=== PATIENT | female | born 1960 | race Caucasian/White ===

== ENCOUNTER 2020-01-08 09:40 | Inpatient (IN) ==
[2020-01-08 11:03] LABS: Eosinophils % 0.2 %; Hemoglobin 11.8 g/dL (11.5-15.4); Immature Granulocytes % 0.8 % (0-4); Lymphocytes % 19.4 %; Mean Corpuscular HGB Conc 32.8 g/dL (31.6-35.5); Mean Corpuscular Hemoglobin 31.1 pg (28.0-33.3); Mean Corpuscular Volume 94.7 fL (83.0-100.0); Mean Platelet Volume 9.2 fL (9.4-12.4); Monocytes # 0.3 K/mcL (0.0-1.3); Monocytes % 6.1 %; Neutrophils # 3.9 K/mcL (1.6-8.9); Platelet Count 216 K/mcL (140-400); Segmented Neutrophils % 73.5 %; White Blood Count 5.3 K/mcL (4.3-11.1)
[2020-01-08 11:05] LABS: INR 1.1; Prothrombin Time 12.3 Seconds (9.4-12.1)
[2020-01-08 11:06] LABS: Activated Partial Thrombo Time 29.4 Seconds (26.0-36.0)
[2020-01-08 11:16] LABS: Alanine Aminotransferase 23 Units/L (7-52); Albumin 3.4 g/dL (3.5-5.7); Albumin/Globulin Ratio 1.3 (1.1-2.2); Alkaline Phosphatase 83 Units/L (34-104); Aspartate Amino Transferase 35 Units/L (13-39); BUN/Creatinine Ratio 18 (6-26); Bilirubin,Direct 0.1 mg/dL (0.0-0.2); Bilirubin,Indirect 0.3 mg/dL (0.0-1.0); Bilirubin,Total 0.4 mg/dL (0.3-1.0); Blood Urea Nitrogen 12 mg/dL (6-20); C-Reactive Protein 107 mg/L (Less than 10); Calcium 8.1 mg/dL (8.6-10.3); Carbon Dioxide 26 mEq/L (23-29); Chloride 105 mEq/L (98-107); Globulin 2.6 g/dL (2.4-3.5); Glucose 105 mg/dL (70-105); Lactate Dehydrogenase 292 Units/L (140-271); Magnesium 1.9 mg/dL (1.6-2.6); Osmolality,Calculated 288 (280-300); Phosphorous 2.4 mg/dL (2.7-4.5); Potassium 3.3 mEq/L (3.5-5.1); Sodium 139 mEq/L (136-145); Troponin I < 0.03 ng/mL (< 0.04); eGFR For African Americans > 60 (> 60); eGFR For Non-African Americans > 60 (> 60)
[2020-01-08 11:33] LABS: Ferritin 218 ng/mL (10-120)
[2020-01-08] MEDS ORDERED: Azithromycin 500 MG in 0.9 % Sodium Chloride 250 ML IVPB ONE (11:37)
[2020-01-08] MEDS ORDERED: cefTRIAXone 1,000 MG in 0.9 % Sodium Chloride Mini Bag 100 ML IVPB ONE (11:37)
[2020-01-08] MEDS ORDERED: Ondansetron 4 MG/2 ML VIAL IVP PRN (13:52)
[2020-01-08] MEDS ORDERED: Naloxone 0.4 MG/ML INJ IVP PRN (13:52)
[2020-01-08] MEDS ORDERED: Furosemide 20 MG/2 ML VIAL IVP SCH (14:00)
[2020-01-08 15:00] LABS: ABG Base Excess 2 mEq/L (-2 to 3); ABG HCO3 27 mEq/L (21-27); ABG Oxygen Saturation 90 % (95-98); ABG PCO2 42 mmHg (35-45); ABG PH 7.42 pH Units (7.32-7.45); ABG PO2 57 mmHg (85-104); ABG TCO2 28 mEq/L (20-26)
[2020-01-08] MEDS ORDERED: hydrOXYzine pamoate 25 MG CAPSULE PO PRN (15:18)
[2020-01-08] MEDS: Famotidine 20 MG/2 ML VIAL IVP SCH (17:45)
[2020-01-08] MEDS ORDERED: Calcium Gluconate 1gm/50mL 1 GM/50 ML BAG IVPB PRN (19:10)
[2020-01-08] MEDS ORDERED: Potassium Phosphate 44 MEQ in 0.9 % Sodium Chloride 250 ML IVPB PRN (19:10)
[2020-01-08] MEDS: Furosemide 20 MG/2 ML VIAL IVP SCH (20:07)
[2020-01-08] MEDS: Gabapentin 300 MG CAPSULE PO SCH (20:08)
[2020-01-08] MEDS: Potassium Chloride Elixir 20 MEQ/15 ML UDC PO SCH (20:32)
[2020-01-09 03:58] LABS: Basophils % 0.4 %; Hematocrit 36.1 % (35.3-44.9); Immature Granulocytes % 0.6 % (0-4); Lymphocytes # 0.9 K/mcL (0.6-4.6); Lymphocytes % 17.7 %; Mean Corpuscular HGB Conc 33.2 g/dL (31.6-35.5); Mean Corpuscular Hemoglobin 31.3 pg (28.0-33.3); Mean Corpuscular Volume 94.3 fL (83.0-100.0); Mean Platelet Volume 9.2 fL (9.4-12.4); Monocytes # 0.3 K/mcL (0.0-1.3); Monocytes % 6.4 %; Platelet Count 229 K/mcL (140-400); Red Blood Count 3.83 M/mcL (3.82-4.97); Segmented Neutrophils % 74.9 %; White Blood Count 5.3 K/mcL (4.3-11.1)
[2020-01-09 04:02] LABS: INR 1.2; Prothrombin Time 13.1 Seconds (9.4-12.1)
[2020-01-09 04:20] LABS: Alanine Aminotransferase 23 Units/L (7-52); Albumin 3.5 g/dL (3.5-5.7); Albumin/Globulin Ratio 1.2 (1.1-2.2); Alkaline Phosphatase 85 Units/L (34-104); Aspartate Amino Transferase 36 Units/L (13-39); BUN/Creatinine Ratio 18 (6-26); Bilirubin,Total 0.4 mg/dL (0.3-1.0); Blood Urea Nitrogen 10 mg/dL (6-20); Calcium 8.1 mg/dL (8.6-10.3); Carbon Dioxide 28 mEq/L (23-29); Chloride 100 mEq/L (98-107); Globulin 2.9 g/dL (2.4-3.5); Glucose 103 mg/dL (70-105); Magnesium 1.7 mg/dL (1.6-2.6); Osmolality,Calculated 287 (280-300); Phosphorous 3.6 mg/dL (2.7-4.5); Potassium 3.8 mEq/L (3.5-5.1); Sodium 139 mEq/L (136-145); Total Protein 6.4 g/dL (6.4-8.9); eGFR For African Americans > 60 (> 60); eGFR For Non-African Americans > 60 (> 60)
[2020-01-09 04:22] LABS: Alanine Aminotransferase 23 Units/L (7-52); Albumin 3.5 g/dL (3.5-5.7); Albumin/Globulin Ratio 1.3 (1.1-2.2); Alkaline Phosphatase 84 Units/L (34-104); Aspartate Amino Transferase 35 Units/L (13-39); Bilirubin,Direct 0.1 mg/dL (0.0-0.2); Bilirubin,Indirect 0.3 mg/dL (0.0-1.0); Bilirubin,Total 0.4 mg/dL (0.3-1.0); C-Reactive Protein 139 mg/L (Less than 10); Creatine Kinase 42 Units/L (30-223); Globulin 2.7 g/dL (2.4-3.5); Lactate Dehydrogenase 321 Units/L (140-271); Total Protein 6.2 g/dL (6.4-8.9); Troponin I < 0.03 ng/mL (< 0.04)
[2020-01-09 04:36] LABS: Ferritin 243 ng/mL (10-120)
[2020-01-09] MEDS: *HR* Enoxaparin 40 MG/0.4 ML SYRINGE SQ SCH (05:06)
[2020-01-09] MEDS: Famotidine 20 MG/2 ML VIAL IVP SCH ×2 (05:06→16:53)
[2020-01-09 05:23] LABS: ABG Base Excess 3 mEq/L (-2 to 3); ABG HCO3 27 mEq/L (21-27); ABG Oxygen Saturation 89 % (95-98); ABG PCO2 39 mmHg (35-45); ABG PH 7.45 pH Units (7.32-7.45); ABG PO2 54 mmHg (85-104); ABG TCO2 28 mEq/L (20-26); Blood Gas Modality CPAP/PS
[2020-01-09] MEDS: Acetaminophen 325 MG TABLET PO PRN ×2 (05:32→13:04)
[2020-01-09] MEDS: lamoTRIgine 100 MG TABLET PO SCH (07:46)
[2020-01-09] MEDS: Furosemide 20 MG/2 ML VIAL IVP SCH ×3 (07:47→22:01)
[2020-01-09] MEDS: Potassium Chloride Elixir 20 MEQ/15 ML UDC PO SCH ×3 (07:47→22:04)
[2020-01-09] MEDS: cefTRIAXone 1,000 MG in Water for inj. (sterile) 10 ML IVP SCH (07:49)
[2020-01-09 13:40] LABS: Alanine Aminotransferase 22 Units/L (7-52); Albumin 3.8 g/dL (3.5-5.7); Albumin/Globulin Ratio 1.3 (1.1-2.2); Alkaline Phosphatase 93 Units/L (34-104); Aspartate Amino Transferase 39 Units/L (13-39); BUN/Creatinine Ratio 21 (6-26); Bilirubin,Total 0.4 mg/dL (0.3-1.0); Blood Urea Nitrogen 12 mg/dL (6-20); Calcium 8.4 mg/dL (8.6-10.3); Carbon Dioxide 32 mEq/L (23-29); Chloride 101 mEq/L (98-107); Glucose 107 mg/dL (70-105); Magnesium 2.4 mg/dL (1.6-2.6); Osmolality,Calculated 292 (280-300); Potassium 3.9 mEq/L (3.5-5.1); Sodium 141 mEq/L (136-145); Total Protein 6.8 g/dL (6.4-8.9); eGFR For African Americans > 60 (> 60); eGFR For Non-African Americans > 60 (> 60)
[2020-01-09] MEDS ORDERED: Potassium Chloride Elixir 20 MEQ/15 ML UDC PO PRN (13:48)
[2020-01-09] MEDS: Azithromycin 500 MG in 0.9 % Sodium Chloride 250 ML IVPB SCH (14:16)
[2020-01-09 19:28] LABS: Alanine Aminotransferase 23 Units/L (7-52); Albumin 3.6 g/dL (3.5-5.7); Albumin/Globulin Ratio 1.1 (1.1-2.2); Alkaline Phosphatase 88 Units/L (34-104); Aspartate Amino Transferase 40 Units/L (13-39); BUN/Creatinine Ratio 25 (6-26); Bilirubin,Total 0.4 mg/dL (0.3-1.0); Blood Urea Nitrogen 13 mg/dL (6-20); Calcium 8.3 mg/dL (8.6-10.3); Carbon Dioxide 30 mEq/L (23-29); Chloride 101 mEq/L (98-107); Globulin 3.4 g/dL (2.4-3.5); Glucose 93 mg/dL (70-105); Magnesium 2.3 mg/dL (1.6-2.6); Osmolality,Calculated 292 (280-300); Potassium 3.8 mEq/L (3.5-5.1); Sodium 141 mEq/L (136-145); eGFR For African Americans > 60 (> 60); eGFR For Non-African Americans > 60 (> 60)
[2020-01-09] MEDS ORDERED: *HR* Etomidate 20 MG/10 ML AMPUL IVP ONE (19:33)
[2020-01-09] MEDS ORDERED: *HR* Rocuronium Bromide 100 MG/10 ML VIAL IVC ONE (19:33)
[2020-01-09] MEDS ORDERED: *HR* Midazolam HCl 5 MG/5 ML VIAL IVP ONE (19:33)
[2020-01-09] MEDS ORDERED: *HR* Midazolam HCl 2 MG/2 ML VIAL IV ONE (19:33)
[2020-01-09] MEDS: Gabapentin 300 MG CAPSULE PO SCH (22:02)
[2020-01-10 05:37] LABS: VBG Ionized Calcium 1.03 mmol/L (1.15-1.35)
[2020-01-10 05:51] LABS: D-Dimer 1803 ng/mLFEU (0-500)
[2020-01-10] MEDS: Famotidine 20 MG/2 ML VIAL IVP SCH ×2 (05:51→17:31)
[2020-01-10] MEDS: *HR* Enoxaparin 40 MG/0.4 ML SYRINGE SQ SCH (05:51)
[2020-01-10 05:54] LABS: Fibrinogen 816 mg/dL (169-393)
[2020-01-10 05:58] LABS: Alanine Aminotransferase 20 Units/L (7-52); Albumin 3.6 g/dL (3.5-5.7); Albumin/Globulin Ratio 1.1 (1.1-2.2); Alkaline Phosphatase 90 Units/L (34-104); Aspartate Amino Transferase 40 Units/L (13-39); BUN/Creatinine Ratio 24 (6-26); Bilirubin,Total 0.5 mg/dL (0.3-1.0); Blood Urea Nitrogen 15 mg/dL (6-20); Calcium 8.2 mg/dL (8.6-10.3); Carbon Dioxide 32 mEq/L (23-29); Chloride 100 mEq/L (98-107); Globulin 3.2 g/dL (2.4-3.5); Glucose 119 mg/dL (70-105); Magnesium 2.2 mg/dL (1.6-2.6); Osmolality,Calculated 292 (280-300); Sodium 140 mEq/L (136-145); Total Protein 6.8 g/dL (6.4-8.9); eGFR For African Americans > 60 (> 60); eGFR For Non-African Americans > 60 (> 60)
[2020-01-10 06:14] LABS: Ferritin 314 ng/mL (10-120)
[2020-01-10] MEDS: lamoTRIgine 100 MG TABLET PO SCH (08:31)
[2020-01-10] MEDS: cefTRIAXone 1,000 MG in Water for inj. (sterile) 10 ML IVP SCH (08:32)
[2020-01-10] MEDS: Azithromycin 500 MG in 0.9 % Sodium Chloride 250 ML IVPB SCH (14:33)
[2020-01-10] MEDS: Magic Mouthwash 10 ML UD Cup PO SCH (14:58)
[2020-01-10] MEDS: *HR* Enoxaparin 100 MG/ML SYRINGE SQ SCH (17:31)
[2020-01-10 18:37] LABS: ABG Base Excess 7 mEq/L (-2 to 3); ABG HCO3 33 mEq/L (21-27); ABG Oxygen Saturation 97 % (95-98); ABG PCO2 51 mmHg (35-45); ABG PH 7.42 pH Units (7.32-7.45); ABG PO2 90 mmHg (85-104); ABG TCO2 35 mEq/L (20-26)
[2020-01-10] MEDS ORDERED: Calcium Gluconate 1gm/50mL 1 GM/50 ML BAG IVPB PRN (18:42)
[2020-01-10] MEDS ORDERED: Furosemide 40 MG/4 ML VIAL IVP ONE (18:43)
[2020-01-10] MEDS: Dexmedetomidine HCl 400 MCG/100 ML MLS IVC SCH (19:32)
[2020-01-10] MEDS: Gabapentin 300 MG CAPSULE PO SCH (20:06)
[2020-01-10 21:04] LABS: Basophils % 0.1 %; Hematocrit 41.1 % (35.3-44.9); Hemoglobin 13.1 g/dL (11.5-15.4); Immature Granulocytes % 0.6 % (0-4); Lymphocytes # 1.1 K/mcL (0.6-4.6); Lymphocytes % 13.1 %; Mean Corpuscular HGB Conc 31.9 g/dL (31.6-35.5); Mean Corpuscular Hemoglobin 30.5 pg (28.0-33.3); Mean Corpuscular Volume 95.6 fL (83.0-100.0); Mean Platelet Volume 8.8 fL (9.4-12.4); Monocytes # 0.4 K/mcL (0.0-1.3); Monocytes % 4.9 %; Neutrophils # 6.7 K/mcL (1.6-8.9); Platelet Count 298 K/mcL (140-400); Red Cell Distribution Width 11.9 % (11.5-14.5); Segmented Neutrophils % 81.3 %; White Blood Count 8.2 K/mcL (4.3-11.1)
[2020-01-10 21:06] LABS: VBG Ionized Calcium 0.91 mmol/L (1.15-1.35)
[2020-01-10 21:22] LABS: BUN/Creatinine Ratio 32 (6-26); Blood Urea Nitrogen 18 mg/dL (6-20); C-Reactive Protein 238 mg/L (Less than 10); Calcium 8.5 mg/dL (8.6-10.3); Carbon Dioxide 32 mEq/L (23-29); Chloride 99 mEq/L (98-107); Glucose 95 mg/dL (70-105); Lactate Dehydrogenase 516 Units/L (140-271); Magnesium 2.2 mg/dL (1.6-2.6); Osmolality,Calculated 292 (280-300); Potassium 3.9 mEq/L (3.5-5.1); Sodium 140 mEq/L (136-145); eGFR For African Americans > 60 (> 60); eGFR For Non-African Americans > 60 (> 60)
[2020-01-10 21:31] LABS: D-Dimer 1739 ng/mLFEU (0-500)
[2020-01-10 21:32] LABS: Fibrinogen 987 mg/dL (169-393)
[2020-01-11] MEDS: Dexmedetomidine HCl 400 MCG/100 ML MLS IVC SCH ×2 (02:25→15:28)
[2020-01-11 04:45] LABS: Basophils % 0.1 %; Hematocrit 39.3 % (35.3-44.9); Hemoglobin 12.7 g/dL (11.5-15.4); Immature Granulocytes % 0.4 % (0-4); Lymphocytes # 1.1 K/mcL (0.6-4.6); Lymphocytes % 11.4 %; Mean Corpuscular HGB Conc 32.3 g/dL (31.6-35.5); Mean Corpuscular Hemoglobin 30.8 pg (28.0-33.3); Mean Corpuscular Volume 95.4 fL (83.0-100.0); Mean Platelet Volume 9.2 fL (9.4-12.4); Monocytes # 0.5 K/mcL (0.0-1.3); Neutrophils # 7.6 K/mcL (1.6-8.9); Platelet Count 291 K/mcL (140-400); Red Blood Count 4.12 M/mcL (3.82-4.97); Red Cell Distribution Width 11.8 % (11.5-14.5); Segmented Neutrophils % 83.1 %; White Blood Count 9.2 K/mcL (4.3-11.1)
[2020-01-11 04:55] LABS: D-Dimer 1976 ng/mLFEU (0-500)
[2020-01-11 04:58] LABS: Fibrinogen 948 mg/dL (169-393)
[2020-01-11 05:04] LABS: BUN/Creatinine Ratio 32 (6-26); Blood Urea Nitrogen 20 mg/dL (6-20); C-Reactive Protein 225 mg/L (Less than 10); Calcium 8.6 mg/dL (8.6-10.3); Carbon Dioxide 34 mEq/L (23-29); Chloride 98 mEq/L (98-107); Glucose 124 mg/dL (70-105); Lactate Dehydrogenase 516 Units/L (140-271); Osmolality,Calculated 292 (280-300); Potassium 4.1 mEq/L (3.5-5.1); Sodium 139 mEq/L (136-145); eGFR For African Americans > 60 (> 60); eGFR For Non-African Americans > 60 (> 60)
[2020-01-11] MEDS: Magic Mouthwash 10 ML UD Cup PO SCH ×3 (05:36→17:13)
[2020-01-11] MEDS: Famotidine 20 MG/2 ML VIAL IVP SCH ×2 (05:36→17:14)
[2020-01-11] MEDS: *HR* Enoxaparin 100 MG/ML SYRINGE SQ SCH (05:36)
[2020-01-11] MEDS: cefTRIAXone 1,000 MG in Water for inj. (sterile) 10 ML IVP SCH (08:23)
[2020-01-11] MEDS: lamoTRIgine 100 MG TABLET PO SCH (08:23)
[2020-01-11 08:50] LABS: Magnesium 2.2 mg/dL (1.6-2.6)
[2020-01-11] MEDS ORDERED: Furosemide 40 MG/4 ML VIAL IVP ONE (09:23)
[2020-01-11 09:52] LABS: VBG Ionized Calcium 1.03 mmol/L (1.15-1.35)
[2020-01-11 10:43] LABS: Blood Gas Pressure Support 16 cm H2O; VBG HCO3 32 mEq/L (21-27); VBG PCO2 42 mmHg (41-51); VBG PO2 70 mmHg (25-50)
[2020-01-11] MEDS: Calcium Gluconate 1gm/50mL 1 GM/50 ML BAG IVPB PRN (10:53)
[2020-01-11] MEDS: Azithromycin 500 MG in 0.9 % Sodium Chloride 250 ML IVPB SCH (12:38)
[2020-01-11] MEDS: *HR* Enoxaparin 120 MG/0.8 ML SYRINGE SQ SCH (17:13)
[2020-01-11] MEDS: Gabapentin 300 MG CAPSULE PO SCH (21:25)
[2020-01-12 04:11] LABS: ABG Base Excess 8 mEq/L (-2 to 3); ABG HCO3 33 mEq/L (21-27); ABG Oxygen Saturation 97 % (95-98); ABG PCO2 48 mmHg (35-45); ABG PH 7.45 pH Units (7.32-7.45); ABG PO2 92 mmHg (85-104); ABG TCO2 34 mEq/L (20-26)
[2020-01-12 04:40] LABS: VBG Ionized Calcium 1.03 mmol/L (1.15-1.35)
[2020-01-12 04:52] LABS: INR 1.3
[2020-01-12 04:54] LABS: D-Dimer 1409 ng/mLFEU (0-500)
[2020-01-12 04:55] LABS: Fibrinogen > 1000 mg/dL (169-393)
[2020-01-12] MEDS: *HR* Enoxaparin 120 MG/0.8 ML SYRINGE SQ SCH ×2 (05:11→17:04)
[2020-01-12] MEDS: Famotidine 20 MG/2 ML VIAL IVP SCH ×2 (05:12→17:03)
[2020-01-12 05:44] LABS: Alanine Aminotransferase 28 Units/L (7-52); Albumin 3.5 g/dL (3.5-5.7); Alkaline Phosphatase 92 Units/L (34-104); Aspartate Amino Transferase 49 Units/L (13-39); BUN/Creatinine Ratio 42 (6-26); Bilirubin,Direct 0.2 mg/dL (0.0-0.2); Bilirubin,Indirect 0.5 mg/dL (0.0-1.0); Bilirubin,Total 0.7 mg/dL (0.3-1.0); Blood Urea Nitrogen 25 mg/dL (6-20); C-Reactive Protein > 300 mg/L (Less than 10); Calcium 8.7 mg/dL (8.6-10.3); Carbon Dioxide 31 mEq/L (23-29); Chloride 97 mEq/L (98-107); Creatine Kinase 33 Units/L (30-223); Ferritin 925 ng/mL (10-120); Globulin 3.5 g/dL (2.4-3.5); Glucose 118 mg/dL (70-105); Lactate Dehydrogenase 486 Units/L (140-271); Magnesium 2.3 mg/dL (1.6-2.6); Osmolality,Calculated 295 (280-300); Phosphorous 3.2 mg/dL (2.7-4.5); Potassium 3.6 mEq/L (3.5-5.1); Sodium 140 mEq/L (136-145); Troponin I < 0.03 ng/mL (< 0.04); eGFR For African Americans > 60 (> 60); eGFR For Non-African Americans > 60 (> 60)
[2020-01-12 05:46] LABS: Immature Granulocytes % 0.4 % (0-4); Red Blood Count 4.04 M/mcL (3.82-4.97)
[2020-01-12 05:48] LABS: Immature Platelets 2.5 % (1.1-6.1); Red Cell Distribution Width 11.4 % (11.5-14.5)
[2020-01-12 05:52] LABS: Basophils % 0.3 %; Eosinophils % 0.2 %; Hematocrit 37.7 % (35.3-44.9); Hemoglobin 12.5 g/dL (11.5-15.4); Lymphocytes # 1.1 K/mcL (0.6-4.6); Lymphocytes % 9.6 %; Mean Corpuscular HGB Conc 33.2 g/dL (31.6-35.5); Mean Corpuscular Hemoglobin 30.9 pg (28.0-33.3); Mean Corpuscular Volume 93.3 fL (83.0-100.0); Mean Platelet Volume 9.3 fL (9.4-12.4); Monocytes # 0.5 K/mcL (0.0-1.3); Neutrophils # 9.6 K/mcL (1.6-8.9); Platelet Count 302 K/mcL (140-400); Segmented Neutrophils % 85.5 %; White Blood Count 11.2 K/mcL (4.3-11.1)
[2020-01-12] MEDS: lamoTRIgine 100 MG TABLET PO SCH (08:04)
[2020-01-12] MEDS: cefTRIAXone 1,000 MG in Water for inj. (sterile) 10 ML IVP SCH (08:04)
[2020-01-12] MEDS: Magic Mouthwash 10 ML UD Cup PO SCH ×3 (08:04→17:03)
[2020-01-12] MEDS ORDERED: Furosemide 40 MG/4 ML VIAL IVP ONE (09:39)
[2020-01-12] MEDS: Dexmedetomidine HCl 400 MCG/100 ML MLS IVC SCH ×2 (14:01→23:44)
[2020-01-12] MEDS: Azithromycin 500 MG in 0.9 % Sodium Chloride 250 ML IVPB SCH (14:42)
[2020-01-12] MEDS: Gabapentin 300 MG CAPSULE PO SCH (20:07)
[2020-01-12 22:00] LABS: VBG Ionized Calcium 0.88 mmol/L (1.15-1.35)
[2020-01-12] MEDS: Calcium Gluconate 1gm/50mL 1 GM/50 ML BAG IVPB PRN (23:43)
[2020-01-13 04:42] LABS: ABG Base Excess 7 mEq/L (-2 to 3); ABG HCO3 31 mEq/L (21-27); ABG Oxygen Saturation 95 % (95-98); ABG PCO2 42 mmHg (35-45); ABG PH 7.48 pH Units (7.32-7.45); ABG PO2 70 mmHg (85-104); ABG TCO2 32 mEq/L (20-26); Blood Gas Modality NIV
[2020-01-13] MEDS: *HR* Enoxaparin 120 MG/0.8 ML SYRINGE SQ SCH ×2 (05:00→17:15)
[2020-01-13] MEDS: Famotidine 20 MG/2 ML VIAL IVP SCH ×2 (05:00→17:16)
[2020-01-13 05:12] LABS: Basophils % 0.2 %; Eosinophils % 0.4 %; Hematocrit 38.4 % (35.3-44.9); Hemoglobin 12.4 g/dL (11.5-15.4); Immature Granulocytes % 0.9 % (0-4); Lymphocytes # 0.9 K/mcL (0.6-4.6); Lymphocytes % 8.5 %; Mean Corpuscular HGB Conc 32.3 g/dL (31.6-35.5); Mean Corpuscular Hemoglobin 30.3 pg (28.0-33.3); Mean Corpuscular Volume 93.9 fL (83.0-100.0); Mean Platelet Volume 9.2 fL (9.4-12.4); Monocytes # 0.4 K/mcL (0.0-1.3); Monocytes % 3.8 %; Neutrophils # 9.5 K/mcL (1.6-8.9); Platelet Count 325 K/mcL (140-400); Red Blood Count 4.09 M/mcL (3.82-4.97); Red Cell Distribution Width 11.5 % (11.5-14.5); Segmented Neutrophils % 86.2 %
[2020-01-13 05:15] LABS: VBG Ionized Calcium 1.04 mmol/L (1.15-1.35)
[2020-01-13 05:28] LABS: BUN/Creatinine Ratio 39 (6-26); Blood Urea Nitrogen 20 mg/dL (6-20); C-Reactive Protein > 300 mg/L (Less than 10); Carbon Dioxide 33 mEq/L (23-29); Chloride 96 mEq/L (98-107); Glucose 117 mg/dL (70-105); Osmolality,Calculated 292 (280-300); Potassium 3.6 mEq/L (3.5-5.1); Sodium 139 mEq/L (136-145); eGFR For African Americans > 60 (> 60); eGFR For Non-African Americans > 60 (> 60)
[2020-01-13 05:29] LABS: INR 1.3; Prothrombin Time 14.2 Seconds (9.4-12.1)
[2020-01-13 05:30] LABS: D-Dimer 2011 ng/mLFEU (0-500)
[2020-01-13 05:32] LABS: Fibrinogen > 1000 mg/dL (169-393); Troponin I < 0.03 ng/mL (< 0.04)
[2020-01-13 05:50] LABS: Alanine Aminotransferase 32 Units/L (7-52); Albumin 3.4 g/dL (3.5-5.7); Albumin/Globulin Ratio 0.9 (1.1-2.2); Alkaline Phosphatase 121 Units/L (34-104); Aspartate Amino Transferase 47 Units/L (13-39); Bilirubin,Direct 0.4 mg/dL (0.0-0.2); Bilirubin,Indirect 0.5 mg/dL (0.0-1.0); Bilirubin,Total 0.9 mg/dL (0.3-1.0); Creatine Kinase 135 Units/L (30-223); Ferritin 979 ng/mL (10-120); Globulin 3.6 g/dL (2.4-3.5); Lactate Dehydrogenase 454 Units/L (140-271); Magnesium 2.3 mg/dL (1.6-2.6); Phosphorous 2.7 mg/dL (2.7-4.5)
[2020-01-13] MEDS: lamoTRIgine 100 MG TABLET PO SCH (07:46)
[2020-01-13] MEDS: Dexmedetomidine HCl 400 MCG/100 ML MLS IVC SCH ×2 (07:46→14:35)
[2020-01-13] MEDS: Magic Mouthwash 10 ML UD Cup PO SCH ×3 (07:46→17:16)
[2020-01-13] MEDS: Potassium Phosphate 44 MEQ in 0.9 % Sodium Chloride 250 ML IVPB PRN (07:48)
[2020-01-13] MEDS: Calcium Gluconate 1gm/50mL 1 GM/50 ML BAG IVPB PRN ×2 (07:50→20:05)
[2020-01-13] MEDS ORDERED: Furosemide 40 MG/4 ML VIAL IVP ONE (07:53)
[2020-01-13] MEDS: cefTRIAXone 1,000 MG in Water for inj. (sterile) 10 ML IVP SCH (08:02)
[2020-01-13] MEDS: Acetaminophen 325 MG TABLET PO PRN (08:36)
[2020-01-13] MEDS: Azithromycin 500 MG in 0.9 % Sodium Chloride 250 ML IVPB SCH (13:43)
[2020-01-13] MEDS: MethylPREDNISolone 40 MG/ML VIAL IVP SCH (17:16)
[2020-01-13 18:59] LABS: VBG Ionized Calcium 1.04 mmol/L (1.15-1.35)
[2020-01-13 19:17] LABS: Phosphorous 3.6 mg/dL (2.7-4.5); Potassium 3.6 mEq/L (3.5-5.1)
[2020-01-13] MEDS: Gabapentin 300 MG CAPSULE PO SCH (20:08)
[2020-01-14] MEDS: Dexmedetomidine HCl 400 MCG/100 ML MLS IVC SCH ×2 (02:40→18:09)
[2020-01-14 03:19] LABS: VBG Ionized Calcium 1.01 mmol/L (1.15-1.35)
[2020-01-14 03:25] LABS: Basophils % 0.2 %; Hematocrit 38.3 % (35.3-44.9); Hemoglobin 12.2 g/dL (11.5-15.4); Immature Granulocytes % 1.4 % (0-4); Lymphocytes # 0.7 K/mcL (0.6-4.6); Lymphocytes % 5.5 %; Mean Corpuscular HGB Conc 31.9 g/dL (31.6-35.5); Mean Corpuscular Hemoglobin 30.3 pg (28.0-33.3); Mean Platelet Volume 9.3 fL (9.4-12.4); Monocytes # 0.3 K/mcL (0.0-1.3); Monocytes % 2.5 %; Neutrophils # 11.1 K/mcL (1.6-8.9); Platelet Count 363 K/mcL (140-400); Red Blood Count 4.03 M/mcL (3.82-4.97); Red Cell Distribution Width 11.4 % (11.5-14.5); Segmented Neutrophils % 90.4 %; White Blood Count 12.3 K/mcL (4.3-11.1)
[2020-01-14 03:34] LABS: BUN/Creatinine Ratio 35 (6-26); Blood Urea Nitrogen 18 mg/dL (6-20); Calcium 9.1 mg/dL (8.6-10.3); Carbon Dioxide 31 mEq/L (23-29); Chloride 98 mEq/L (98-107); Glucose 139 mg/dL (70-105); Magnesium 2.3 mg/dL (1.6-2.6); Osmolality,Calculated 294 (280-300); Phosphorous 3.5 mg/dL (2.7-4.5); Potassium 4.3 mEq/L (3.5-5.1); Sodium 140 mEq/L (136-145); eGFR For African Americans > 60 (> 60); eGFR For Non-African Americans > 60 (> 60)
[2020-01-14] MEDS: Calcium Gluconate 1gm/50mL 1 GM/50 ML BAG IVPB PRN (04:28)
[2020-01-14] MEDS: Famotidine 20 MG/2 ML VIAL IVP SCH ×2 (05:32→18:06)
[2020-01-14] MEDS: MethylPREDNISolone 40 MG/ML VIAL IVP SCH ×2 (05:32→18:05)
[2020-01-14] MEDS: *HR* Enoxaparin 120 MG/0.8 ML SYRINGE SQ SCH ×2 (05:32→18:06)
[2020-01-14 08:22] LABS: ABG Base Excess 9 mEq/L (-2 to 3); ABG HCO3 34 mEq/L (21-27); ABG Oxygen Saturation 92 % (95-98); ABG PCO2 47 mmHg (35-45); ABG PH 7.47 pH Units (7.32-7.45); ABG PO2 61 mmHg (85-104); ABG TCO2 36 mEq/L (20-26)
[2020-01-14] MEDS: cefTRIAXone 1,000 MG in Water for inj. (sterile) 10 ML IVP SCH (08:33)
[2020-01-14] MEDS: Magic Mouthwash 10 ML UD Cup PO SCH ×3 (08:34→18:06)
[2020-01-14] MEDS: lamoTRIgine 100 MG TABLET PO SCH (08:34)
[2020-01-14 11:32] LABS: VBG Ionized Calcium 1.14 mmol/L (1.15-1.35)
[2020-01-14] MEDS: Azithromycin 500 MG in 0.9 % Sodium Chloride 250 ML IVPB SCH (13:51)
[2020-01-14] MEDS: Gabapentin 300 MG CAPSULE PO SCH (19:50)
[2020-01-15] MEDS: Dexmedetomidine HCl 400 MCG/100 ML MLS IVC SCH ×4 (02:20→19:16)
[2020-01-15 04:20] LABS: VBG Ionized Calcium 1.07 mmol/L (1.15-1.35)
[2020-01-15 04:21] LABS: Basophils % 0.1 %; Hematocrit 38.6 % (35.3-44.9); Hemoglobin 12.4 g/dL (11.5-15.4); Immature Granulocytes % 1.2 % (0-4); Lymphocytes # 0.9 K/mcL (0.6-4.6); Lymphocytes % 5.4 %; Mean Corpuscular HGB Conc 32.1 g/dL (31.6-35.5); Mean Corpuscular Hemoglobin 30.3 pg (28.0-33.3); Mean Corpuscular Volume 94.4 fL (83.0-100.0); Mean Platelet Volume 9.6 fL (9.4-12.4); Monocytes # 0.9 K/mcL (0.0-1.3); Monocytes % 5.4 %; Neutrophils # 15.1 K/mcL (1.6-8.9); Platelet Count 438 K/mcL (140-400); Red Blood Count 4.09 M/mcL (3.82-4.97); Red Cell Distribution Width 11.5 % (11.5-14.5); Segmented Neutrophils % 87.9 %; White Blood Count 17.2 K/mcL (4.3-11.1)
[2020-01-15 04:22] LABS: INR 1.2; Prothrombin Time 14.1 Seconds (9.4-12.1)
[2020-01-15 04:37] LABS: Alanine Aminotransferase 31 Units/L (7-52); Albumin 3.1 g/dL (3.5-5.7); Albumin/Globulin Ratio 0.9 (1.1-2.2); Alkaline Phosphatase 136 Units/L (34-104); Aspartate Amino Transferase 28 Units/L (13-39); BUN/Creatinine Ratio 42 (6-26); Bilirubin,Direct 0.1 mg/dL (0.0-0.2); Bilirubin,Indirect 0.3 mg/dL (0.0-1.0); Bilirubin,Total 0.4 mg/dL (0.3-1.0); Blood Urea Nitrogen 22 mg/dL (6-20); C-Reactive Protein 172 mg/L (Less than 10); Calcium 8.8 mg/dL (8.6-10.3); Carbon Dioxide 33 mEq/L (23-29); Chloride 99 mEq/L (98-107); Globulin 3.5 g/dL (2.4-3.5); Glucose 150 mg/dL (70-105); Lactate Dehydrogenase 343 Units/L (140-271); Magnesium 2.3 mg/dL (1.6-2.6); Osmolality,Calculated 298 (280-300); Phosphorous 3.6 mg/dL (2.7-4.5); Sodium 141 mEq/L (136-145); Total Protein 6.6 g/dL (6.4-8.9); eGFR For African Americans > 60 (> 60); eGFR For Non-African Americans > 60 (> 60)
[2020-01-15 04:52] LABS: ABG Base Excess 9 mEq/L (-2 to 3); ABG HCO3 34 mEq/L (21-27); ABG Oxygen Saturation 92 % (95-98); ABG PCO2 49 mmHg (35-45); ABG PH 7.45 pH Units (7.32-7.45); ABG PO2 61 mmHg (85-104); ABG TCO2 35 mEq/L (20-26); Blood Gas Modality NIV
[2020-01-15] MEDS: *HR* Enoxaparin 120 MG/0.8 ML SYRINGE SQ SCH ×2 (05:58→17:30)
[2020-01-15] MEDS: Famotidine 20 MG/2 ML VIAL IVP SCH ×2 (05:58→17:30)
[2020-01-15] MEDS: MethylPREDNISolone 40 MG/ML VIAL IVP SCH ×2 (05:59→17:30)
[2020-01-15] MEDS: Calcium Gluconate 1gm/50mL 1 GM/50 ML BAG IVPB PRN (06:01)
[2020-01-15] MEDS: Magic Mouthwash 10 ML UD Cup PO SCH ×3 (08:27→16:21)
[2020-01-15] MEDS: lamoTRIgine 100 MG TABLET PO SCH (08:27)
[2020-01-15] MEDS: cefTRIAXone 1,000 MG in Water for inj. (sterile) 10 ML IVP SCH (08:27)
[2020-01-15] MEDS: Furosemide 40 MG/4 ML VIAL IVP SCH ×2 (13:22→19:53)
[2020-01-15] MEDS: *HR* OxyCODONE/APAP 5/325 TABLET PO PRN (17:52)
[2020-01-15] MEDS: Gabapentin 300 MG CAPSULE PO SCH (19:53)
[2020-01-16] MEDS: Dexmedetomidine HCl 400 MCG/100 ML MLS IVC SCH ×3 (00:59→20:12)
[2020-01-16 04:24] LABS: Basophils % 0.1 %; Hematocrit 37.6 % (35.3-44.9); Hemoglobin 12.1 g/dL (11.5-15.4); Immature Granulocytes % 1.2 % (0-4); Lymphocytes # 0.9 K/mcL (0.6-4.6); Mean Corpuscular HGB Conc 32.2 g/dL (31.6-35.5); Mean Corpuscular Hemoglobin 30.3 pg (28.0-33.3); Mean Corpuscular Volume 94.2 fL (83.0-100.0); Mean Platelet Volume 9.6 fL (9.4-12.4); Monocytes # 0.9 K/mcL (0.0-1.3); Monocytes % 5.9 %; Neutrophils # 13.5 K/mcL (1.6-8.9); Platelet Count 399 K/mcL (140-400); Red Blood Count 3.99 M/mcL (3.82-4.97); Red Cell Distribution Width 11.2 % (11.5-14.5); Segmented Neutrophils % 86.8 %; White Blood Count 15.6 K/mcL (4.3-11.1)
[2020-01-16 04:26] LABS: VBG Ionized Calcium 1.01 mmol/L (1.15-1.35)
[2020-01-16 04:40] LABS: Alanine Aminotransferase 29 Units/L (7-52); Albumin 3.1 g/dL (3.5-5.7); Albumin/Globulin Ratio 0.9 (1.1-2.2); Alkaline Phosphatase 129 Units/L (34-104); Aspartate Amino Transferase 24 Units/L (13-39); BUN/Creatinine Ratio 44 (6-26); Bilirubin,Total 0.5 mg/dL (0.3-1.0); Blood Urea Nitrogen 24 mg/dL (6-20); Calcium 8.7 mg/dL (8.6-10.3); Carbon Dioxide 33 mEq/L (23-29); Chloride 97 mEq/L (98-107); Globulin 3.4 g/dL (2.4-3.5); Glucose 139 mg/dL (70-105); Osmolality,Calculated 294 (280-300); Potassium 3.8 mEq/L (3.5-5.1); Sodium 139 mEq/L (136-145); Total Protein 6.5 g/dL (6.4-8.9); eGFR For African Americans > 60 (> 60); eGFR For Non-African Americans > 60 (> 60)
[2020-01-16] MEDS: Calcium Gluconate 1gm/50mL 1 GM/50 ML BAG IVPB PRN (04:43)
[2020-01-16 04:49] LABS: INR 1.2
[2020-01-16] MEDS: Famotidine 20 MG/2 ML VIAL IVP SCH ×2 (05:32→17:03)
[2020-01-16] MEDS: MethylPREDNISolone 40 MG/ML VIAL IVP SCH ×2 (05:32→17:03)
[2020-01-16] MEDS: *HR* Enoxaparin 120 MG/0.8 ML SYRINGE SQ SCH ×2 (05:32→17:03)
[2020-01-16 06:00] LABS: Magnesium 2.2 mg/dL (1.6-2.6); Phosphorous 3.8 mg/dL (2.7-4.5)
[2020-01-16] MEDS: Magic Mouthwash 10 ML UD Cup PO SCH ×3 (09:00→17:03)
[2020-01-16] MEDS: Furosemide 40 MG/4 ML VIAL IVP SCH ×2 (09:00→20:11)
[2020-01-16] MEDS: cefTRIAXone 1,000 MG in Water for inj. (sterile) 10 ML IVP SCH (09:00)
[2020-01-16] MEDS: lamoTRIgine 100 MG TABLET PO SCH (09:00)
[2020-01-16] MEDS: Acetaminophen 325 MG TABLET PO PRN (09:01)
[2020-01-16] MEDS: *HR* OxyCODONE/APAP 5/325 TABLET PO PRN (12:08)
[2020-01-16] MEDS: Gabapentin 300 MG CAPSULE PO SCH (20:10)
[2020-01-17] MEDS: Dexmedetomidine HCl 400 MCG/100 ML MLS IVC SCH ×5 (01:29→22:44)
[2020-01-17 04:50] LABS: Basophils % 0.2 %; Eosinophils % 0.1 %; Hematocrit 38.2 % (35.3-44.9); Hemoglobin 12.5 g/dL (11.5-15.4); Immature Granulocytes % 2.1 % (0-4); Lymphocytes # 1.1 K/mcL (0.6-4.6); Lymphocytes % 7.9 %; Mean Corpuscular HGB Conc 32.7 g/dL (31.6-35.5); Mean Corpuscular Hemoglobin 31.1 pg (28.0-33.3); Mean Platelet Volume 9.5 fL (9.4-12.4); Monocytes # 0.9 K/mcL (0.0-1.3); Monocytes % 6.5 %; Neutrophils # 11.7 K/mcL (1.6-8.9); Platelet Count 349 K/mcL (140-400); Red Blood Count 4.02 M/mcL (3.82-4.97); Red Cell Distribution Width 11.3 % (11.5-14.5); Segmented Neutrophils % 83.2 %; White Blood Count 14.1 K/mcL (4.3-11.1)
[2020-01-17 04:57] LABS: INR 1.3; Prothrombin Time 14.2 Seconds (9.4-12.1)
[2020-01-17 05:00] LABS: VBG Ionized Calcium 1.02 mmol/L (1.15-1.35)
[2020-01-17 05:11] LABS: Alanine Aminotransferase 29 Units/L (7-52); Albumin 3.1 g/dL (3.5-5.7); Albumin/Globulin Ratio 0.9 (1.1-2.2); Alkaline Phosphatase 132 Units/L (34-104); Aspartate Amino Transferase 25 Units/L (13-39); BUN/Creatinine Ratio 44 (6-26); Bilirubin,Total 0.4 mg/dL (0.3-1.0); Blood Urea Nitrogen 25 mg/dL (6-20); Calcium 8.6 mg/dL (8.6-10.3); Carbon Dioxide 37 mEq/L (23-29); Chloride 96 mEq/L (98-107); Globulin 3.3 g/dL (2.4-3.5); Glucose 140 mg/dL (70-105); Osmolality,Calculated 295 (280-300); Phosphorous 3.4 mg/dL (2.7-4.5); Potassium 4.1 mEq/L (3.5-5.1); Sodium 139 mEq/L (136-145); Total Protein 6.4 g/dL (6.4-8.9); eGFR For African Americans > 60 (> 60); eGFR For Non-African Americans > 60 (> 60)
[2020-01-17] MEDS: *HR* Enoxaparin 120 MG/0.8 ML SYRINGE SQ SCH (05:53)
[2020-01-17] MEDS: MethylPREDNISolone 40 MG/ML VIAL IVP SCH ×2 (05:53→17:09)
[2020-01-17] MEDS: Famotidine 20 MG/2 ML VIAL IVP SCH (05:53)
[2020-01-17 05:54] LABS: Magnesium 2.2 mg/dL (1.6-2.6)
[2020-01-17] MEDS: Calcium Gluconate 1gm/50mL 1 GM/50 ML BAG IVPB PRN ×2 (06:11→17:08)
[2020-01-17] MEDS: lamoTRIgine 100 MG TABLET PO SCH (08:50)
[2020-01-17] MEDS: Magic Mouthwash 10 ML UD Cup PO SCH ×3 (08:50→15:51)
[2020-01-17] MEDS: cefTRIAXone 1,000 MG in Water for inj. (sterile) 10 ML IVP SCH (08:51)
[2020-01-17] MEDS: Furosemide 40 MG/4 ML VIAL IVP SCH ×2 (08:51→19:18)
[2020-01-17] MEDS: *HR* OxyCODONE/APAP 5/325 TABLET PO PRN (09:15)
[2020-01-17 12:50] LABS: VBG Ionized Calcium 1.06 mmol/L (1.15-1.35)
[2020-01-17] MEDS: Gabapentin 300 MG CAPSULE PO SCH (19:18)
[2020-01-17] MEDS: Famotidine 20 MG TABLET PO SCH (19:18)
[2020-01-18] MEDS: Dexmedetomidine HCl 400 MCG/100 ML MLS IVC SCH ×7 (03:05→23:28)
[2020-01-18 04:45] LABS: ABG Base Excess 11 mEq/L (-2 to 3); ABG HCO3 38 mEq/L (21-27); ABG Oxygen Saturation 93 % (95-98); ABG PCO2 56 mmHg (35-45); ABG PH 7.43 pH Units (7.32-7.45); ABG PO2 65 mmHg (85-104); ABG TCO2 39 mEq/L (20-26)
[2020-01-18 04:48] LABS: Basophils % 0.2 %; Eosinophils % 0.1 %; Hemoglobin 12.9 g/dL (11.5-15.4); Immature Granulocytes % 2.7 % (0-4); Lymphocytes % 5.5 %; Mean Corpuscular HGB Conc 32.3 g/dL (31.6-35.5); Mean Corpuscular Hemoglobin 30.3 pg (28.0-33.3); Mean Corpuscular Volume 93.9 fL (83.0-100.0); Mean Platelet Volume 9.9 fL (9.4-12.4); Monocytes % 5.9 %; Neutrophils # 14.8 K/mcL (1.6-8.9); Platelet Count 387 K/mcL (140-400); Red Blood Count 4.26 M/mcL (3.82-4.97); Red Cell Distribution Width 11.1 % (11.5-14.5); Segmented Neutrophils % 85.6 %; White Blood Count 17.3 K/mcL (4.3-11.1)
[2020-01-18 04:53] LABS: VBG Ionized Calcium 1.03 mmol/L (1.15-1.35)
[2020-01-18 04:55] LABS: INR 1.2; Prothrombin Time 13.2 Seconds (9.4-12.1)
[2020-01-18 05:09] LABS: Troponin I < 0.03 ng/mL (< 0.04)
[2020-01-18 05:10] LABS: Alanine Aminotransferase 25 Units/L (7-52); Albumin 3.1 g/dL (3.5-5.7); Alkaline Phosphatase 134 Units/L (34-104); Aspartate Amino Transferase 24 Units/L (13-39); BUN/Creatinine Ratio 40 (6-26); Bilirubin,Direct 0.1 mg/dL (0.0-0.2); Bilirubin,Indirect 0.4 mg/dL (0.0-1.0); Bilirubin,Total 0.5 mg/dL (0.3-1.0); Blood Urea Nitrogen 23 mg/dL (6-20); C-Reactive Protein 39 mg/L (Less than 10); Calcium 8.7 mg/dL (8.6-10.3); Carbon Dioxide 36 mEq/L (23-29); Chloride 94 mEq/L (98-107); Creatine Kinase 26 Units/L (30-223); Globulin 3.2 g/dL (2.4-3.5); Glucose 151 mg/dL (70-105); Lactate Dehydrogenase 370 Units/L (140-271); Magnesium 1.9 mg/dL (1.6-2.6); Osmolality,Calculated 295 (280-300); Phosphorous 3.9 mg/dL (2.7-4.5); Potassium 3.5 mEq/L (3.5-5.1); Sodium 139 mEq/L (136-145); Total Protein 6.3 g/dL (6.4-8.9); eGFR For African Americans > 60 (> 60); eGFR For Non-African Americans > 60 (> 60)
[2020-01-18] MEDS: Calcium Gluconate 1gm/50mL 1 GM/50 ML BAG IVPB PRN ×2 (05:23→11:30)
[2020-01-18 05:27] LABS: Ferritin 474 ng/mL (10-120)
[2020-01-18] MEDS: *HR* Enoxaparin 40 MG/0.4 ML SYRINGE SQ SCH (05:52)
[2020-01-18] MEDS: MethylPREDNISolone 40 MG/ML VIAL IVP SCH ×2 (05:52→17:02)
[2020-01-18] MEDS: Magic Mouthwash 10 ML UD Cup PO SCH ×3 (07:07→15:10)
[2020-01-18] MEDS: lamoTRIgine 100 MG TABLET PO SCH ×2 (07:07→07:42)
[2020-01-18] MEDS: Famotidine 20 MG TABLET PO SCH ×3 (07:08→19:46)
[2020-01-18] MEDS: Furosemide 40 MG/4 ML VIAL IVP SCH ×2 (07:19→19:45)
[2020-01-18] MEDS: cefTRIAXone 1,000 MG in Water for inj. (sterile) 10 ML IVP SCH (07:20)
[2020-01-18] MEDS: *HR* OxyCODONE/APAP 5/325 TABLET PO PRN (08:34)
[2020-01-18 10:43] LABS: VBG Ionized Calcium 1.03 mmol/L (1.15-1.35)
[2020-01-18 11:00] LABS: Magnesium 2.2 mg/dL (1.6-2.6); Potassium 4.1 mEq/L (3.5-5.1)
[2020-01-18] MEDS ORDERED: Dextrose Gel 15 GM/37.5 ML TUBE PO PRN ×2 (11:35)
[2020-01-18] MEDS ORDERED: *HR* Dextrose 50 % in Water (Syg) 50 ML SYRINGE IVP PRN (11:35)
[2020-01-18] MEDS ORDERED: D5% in Water 1,000 ML IVC PRN (11:35)
[2020-01-18 11:48] LABS: Triglycerides 315 mg/dL (< 150)
[2020-01-18] MEDS: Insulin LISPRO 300 UNITS/3 ML VIAL SQ SCH ×4 (11:49→23:10)
[2020-01-18] MEDS ORDERED: D10% in Water 500 ML IVC PRN (11:58)
[2020-01-18] MEDS ORDERED: Clinimix E 5%-15% SOLUTION 2,000 ML with MVI, adult with vitamin K 10 ML IVC SCH (17:00)
[2020-01-18] MEDS: Gabapentin 300 MG CAPSULE PO SCH (19:46)
[2020-01-19] MEDS: Dexmedetomidine HCl 400 MCG/100 ML MLS IVC SCH ×8 (02:45→23:18)
[2020-01-19] MEDS: Insulin LISPRO 300 UNITS/3 ML VIAL SQ SCH ×5 (03:56→20:43)
[2020-01-19 04:11] LABS: VBG Ionized Calcium 1.05 mmol/L (1.15-1.35)
[2020-01-19 04:31] LABS: BUN/Creatinine Ratio 42 (6-26); Blood Urea Nitrogen 23 mg/dL (6-20); Calcium 8.5 mg/dL (8.6-10.3); Carbon Dioxide 33 mEq/L (23-29); Chloride 91 mEq/L (98-107); Glucose 137 mg/dL (70-105); Osmolality,Calculated 284 (280-300); Phosphorous 3.1 mg/dL (2.7-4.5); Potassium 3.5 mEq/L (3.5-5.1); Sodium 134 mEq/L (136-145); eGFR For African Americans > 60 (> 60); eGFR For Non-African Americans > 60 (> 60)
[2020-01-19] MEDS: *HR* Enoxaparin 40 MG/0.4 ML SYRINGE SQ SCH (05:08)
[2020-01-19] MEDS: MethylPREDNISolone 40 MG/ML VIAL IVP SCH ×2 (05:08→16:27)
[2020-01-19] MEDS: Calcium Gluconate 1gm/50mL 1 GM/50 ML BAG IVPB PRN ×3 (05:56→21:04)
[2020-01-19] MEDS: Furosemide 40 MG/4 ML VIAL IVP SCH ×2 (07:42→20:03)
[2020-01-19] MEDS: Magic Mouthwash 10 ML UD Cup PO SCH ×3 (07:42→16:18)
[2020-01-19] MEDS: cefTRIAXone 1,000 MG in Water for inj. (sterile) 10 ML IVP SCH (07:42)
[2020-01-19] MEDS: Famotidine 20 MG TABLET PO SCH ×2 (10:39→20:04)
[2020-01-19] MEDS: lamoTRIgine 100 MG TABLET PO SCH (10:39)
[2020-01-19 11:34] LABS: ABG Base Excess 10 mEq/L (-2 to 3); ABG HCO3 35 mEq/L (21-27); ABG Oxygen Saturation 94 % (95-98); ABG PCO2 44 mmHg (35-45); ABG PO2 64 mmHg (85-104); ABG TCO2 36 mEq/L (20-26); Blood Gas Pressure Support 14 cm H2O
[2020-01-19 12:39] LABS: VBG Ionized Calcium 1.03 mmol/L (1.15-1.35)
[2020-01-19] MEDS ORDERED: *HR* Heparin 5,000 UNIT/ML VIAL IVP PRN ×2 (13:52)
[2020-01-19] MEDS ORDERED: *HR* Heparin 5,000 UNIT/ML VIAL IVP ONE (13:52)
[2020-01-19] MEDS: Heparin 25,000 UNIT/250 ML D5W 25,000 UNIT/250 ML IV.SOLN IVC SCH (14:27)
[2020-01-19] MEDS ORDERED: Clinimix E 5%-15% SOLUTION 2,000 ML with MVI, adult with vitamin K 10 ML IVC SCH (17:00)
[2020-01-19] MEDS: Gabapentin 300 MG CAPSULE PO SCH (20:04)
[2020-01-19] MEDS: *HR* OxyCODONE/APAP 5/325 TABLET PO PRN (20:04)
[2020-01-19 20:17] LABS: VBG Ionized Calcium 1.08 mmol/L (1.15-1.35)
[2020-01-19 20:22] LABS: BUN/Creatinine Ratio 40 (6-26); Blood Urea Nitrogen 18 mg/dL (6-20); Carbon Dioxide 34 mEq/L (23-29); Chloride 90 mEq/L (98-107); Glucose 182 mg/dL (70-105); Osmolality,Calculated 285 (280-300); Potassium 3.7 mEq/L (3.5-5.1); Sodium 134 mEq/L (136-145); eGFR For African Americans > 60 (> 60); eGFR For Non-African Americans > 60 (> 60)
[2020-01-19] MEDS: Cisatracurium 200 MG in 0.9 % Sodium Chloride 180 ML IVC SCH (23:00)
[2020-01-19] MEDS ORDERED: 0.9 % Sodium Chloride 1,000 ML ONE (23:04)
[2020-01-19 23:37] LABS: ABG Base Excess 8 mEq/L (-2 to 3); ABG HCO3 34 mEq/L (21-27); ABG Oxygen Saturation 96 % (95-98); ABG PCO2 51 mmHg (35-45); ABG PH 7.43 pH Units (7.32-7.45); ABG PO2 80 mmHg (85-104); ABG TCO2 36 mEq/L (20-26); Blood Gas Modality VS; Blood Gas VT 450 cc
[2020-01-19] MEDS: FentaNYL (PF) 1,000 MCG/100 ML IV.SOLN IVC SCH (23:58)
[2020-01-20] MEDS: Insulin LISPRO 300 UNITS/3 ML VIAL SQ SCH ×5 (00:37→15:49)
[2020-01-20] MEDS: Dexmedetomidine HCl 400 MCG/100 ML MLS IVC SCH (01:30)
[2020-01-20 04:04] LABS: ABG Base Excess 7 mEq/L (-2 to 3); ABG HCO3 33 mEq/L (21-27); ABG Oxygen Saturation 92 % (95-98); ABG PCO2 50 mmHg (35-45); ABG PH 7.42 pH Units (7.32-7.45); ABG PO2 62 mmHg (85-104); ABG TCO2 34 mEq/L (20-26); Blood Gas Modality VC; Blood Gas VT 450 cc
[2020-01-20 04:05] LABS: VBG Ionized Calcium 1.09 mmol/L (1.15-1.35)
[2020-01-20 04:26] LABS: BUN/Creatinine Ratio 49 (6-26); Blood Urea Nitrogen 19 mg/dL (6-20); Calcium 8.7 mg/dL (8.6-10.3); Carbon Dioxide 31 mEq/L (23-29); Chloride 90 mEq/L (98-107); Glucose 247 mg/dL (70-105); Magnesium 1.8 mg/dL (1.6-2.6); Osmolality,Calculated 283 (280-300); Phosphorous 2.9 mg/dL (2.7-4.5); Potassium 3.6 mEq/L (3.5-5.1); Sodium 131 mEq/L (136-145); eGFR For African Americans > 60 (> 60); eGFR For Non-African Americans > 60 (> 60)
[2020-01-20] MEDS: Calcium Gluconate 1gm/50mL 1 GM/50 ML BAG IVPB PRN ×2 (04:59→16:48)
[2020-01-20] MEDS ORDERED: Potassium Chloride 40 MEQ/200 ML BAG IVPB PRN (05:03)
[2020-01-20] MEDS: Pantoprazole 40 MG VIAL IVP SCH ×2 (05:09→16:48)
[2020-01-20] MEDS: MethylPREDNISolone 40 MG/ML VIAL IVP SCH (05:09)
[2020-01-20] MEDS: Heparin 25,000 UNIT/250 ML D5W 25,000 UNIT/250 ML IV.SOLN IVC SCH ×2 (06:52→08:02)
[2020-01-20] MEDS: FentaNYL (PF) 1,000 MCG/100 ML IV.SOLN IVC SCH ×3 (07:13→18:52)
[2020-01-20] MEDS: cefTRIAXone 1,000 MG in Water for inj. (sterile) 10 ML IVP SCH (08:01)
[2020-01-20] MEDS: Furosemide 40 MG/4 ML VIAL IVP SCH (08:01)
[2020-01-20] MEDS: Magic Mouthwash 10 ML UD Cup PO SCH ×3 (08:02→15:49)
[2020-01-20] MEDS: Famotidine 20 MG TABLET PO SCH (08:02)
[2020-01-20] MEDS: lamoTRIgine 100 MG TABLET PO SCH (08:02)
[2020-01-20] MEDS: Cisatracurium 200 MG in 0.9 % Sodium Chloride 180 ML IVC SCH ×2 (08:04→18:42)
[2020-01-20] MEDS: Artificial Tears SOLN 15 ML BOTTLE BOTH EYES SCH ×3 (08:06→15:49)
[2020-01-20] MEDS ORDERED: Chlorhexidine Rinse 15 ML MOUTHWASH MM SCH (09:00)
[2020-01-20] MEDS: Potassium Phosphate 44 MEQ in 0.9 % Sodium Chloride 250 ML IVPB PRN (09:07)
[2020-01-20 11:17] LABS: VBG Ionized Calcium 1.07 mmol/L (1.15-1.35)
[2020-01-20 11:32] LABS: Potassium 4.2 mEq/L (3.5-5.1)
[2020-01-20 12:33] LABS: ABG Base Excess 4 mEq/L (-2 to 3); ABG HCO3 35 mEq/L (21-27); ABG Oxygen Saturation 89 % (95-98); ABG PCO2 86 mmHg (35-45); ABG PH 7.22 pH Units (7.32-7.45); ABG PO2 71 mmHg (85-104); ABG TCO2 38 mEq/L (20-26); Blood Gas Modality PC
[2020-01-20] MEDS ORDERED: Albumin Human 5% 12.5 GM/250 ML IV.SOLN IVPB ONE (13:48)
[2020-01-20] MEDS ORDERED: methylPREDNISolone 125 MG/2 ML VIAL IVP SCH (16:00)
[2020-01-20] MEDS ORDERED: Clinimix E 5%-15% SOLUTION 2,000 ML with MVI, adult with vitamin K 10 ML IVC SCH (17:00)
[2020-01-20 17:49] LABS: INR 1.3; Prothrombin Time 14.3 Seconds (9.4-12.1)
[2020-01-20 17:52] LABS: Activated Partial Thrombo Time 56.8 Seconds (26.0-36.0)
[2020-01-20 18:03] VITALS: BP 133/87
[2020-01-20 18:09] LABS: Alanine Aminotransferase 53 Units/L (7-52); Albumin 3.3 g/dL (3.5-5.7); Albumin/Globulin Ratio 1.1 (1.1-2.2); Alkaline Phosphatase 155 Units/L (34-104); Aspartate Amino Transferase 58 Units/L (13-39); Bilirubin,Direct 0.2 mg/dL (0.0-0.2); Bilirubin,Indirect 0.3 mg/dL (0.0-1.0); Bilirubin,Total 0.5 mg/dL (0.3-1.0); C-Reactive Protein 87 mg/L (Less than 10); Creatine Kinase 231 Units/L (30-223); Globulin 2.9 g/dL (2.4-3.5); Lactate Dehydrogenase 504 Units/L (140-271); Magnesium 1.8 mg/dL (1.6-2.6); Total Protein 6.2 g/dL (6.4-8.9)
[2020-01-20 18:10] LABS: Troponin I < 0.03 ng/mL (< 0.04)
[2020-01-21] MEDS ORDERED: Clinimix E 5%-15% SOLUTION 2,000 ML with MVI, adult with vitamin K 10 ML IVC SCH (17:00)
== END 2020-01-20 19:34 | disposition short-term general hospital (02) | DRG 208 ==
LOC: EMEROOARM 09:40 → 2NENU 09:40 → SUATTDRO 13:52 → 2NENU 15:00 → SUATTDRO 01-09 12:45 → 2NENU 01-15 07:53
PROVIDERS: ADMIT Internal Medicine; ATTEND Student in an Organized Health Care Education/Training Program